=== PATIENT | male | born 2000 | race African-American/Black ===

== ENCOUNTER 2022-09-03 22:02 | Outpatient (CLI) | payer OTHER, SELFPAY | END 2022-09-03 22:03 | disposition home or self-care (01) | LOC: AMB 10-11 21:11 | PROVIDERS: Visit Provider Family Medicine | DX: S89.91XA Unspecified injury of right lower leg, initial encounter (principal); S09.93XA Unspecified injury of face, initial encounter; V18.0XXA Pedal cycle driver injured in noncollision transport accident in nontraffic accident, initial encounter; Y92.214 College as the place of occurrence of the external cause | CPT/HCPCS: A0425; A0427 ==

== ENCOUNTER 2022-09-03 22:23 | Emergency (ER) | payer OTHER, SELFPAY ==
[2022-09-03] VITALS (9 sets, daily range): BP systolic 126–140; BP diastolic 70–81; PULSE 65–77; RESP 20; TEMP 36.6; O2SAT 98–100; BMI 28.2
--- NOTE | 2022-09-03 22:49 | CRLHL7_ITS ---
For Patients: As a result of the Cures Act, medical imaging exams and procedure reports are released immediately into your electronic medical record. You may view this report before your referring provider. If you have questions, please contact your health care provider. INDICATION: Facial injury. TECHNIQUE: CT maxillofacial without contrast. COMPARISON: None. FINDINGS: Facial bones: No fractures or bone lesions. Specifically the nasal bones, temporomandibular joints, maxilla and mandible appear intact. Orbits and globes: Unremarkable. Globes are intact. No sign of intraorbital hemorrhage or emphysema. Sinuses: No acute or significant findings. Soft tissues: Left maxillary/periorbital hematoma IMPRESSION: Left maxillary/periorbital hematoma without acute fracture. Please note that all CT scans at this facility use dose modulation, iterative reconstruction, and/or weight-based dosing when appropriate to reduce radiation dose to as low as reasonably achievable. Dictated by Rishabh Griggs MD @ 09/03/2022 11:44:27 PM (Electronically Signed)
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
--- NOTE | 2022-09-03 22:49 | CRLHL7_ITS ---
For Patients: As a result of the Century Cures Act, medical imaging exams and procedure reports are released immediately into your electronic medical record. You may view this report before your referring provider. If you have questions, please contact your health care provider. Indication: Trauma. Technique: Right knee, 2 views. Comparison: None. Findings/Impression: Bones: Alignment is normal. No fractures or bone lesions. No sign of acute injury. Joint spaces: Small joint effusion. Soft tissues: Unremarkable. Dictated by Rishabh Griggs MD @ 09/03/2022 11:33:38 PM (Electronically Signed)
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
--- NOTE | 2022-09-03 23:54 | ED.NURSE ---
Antonia, [id number] at [facility] called. Patient states to tell the patient that he is OK. This is relayed to the Abd[facility].
[2022-09-04] MEDS: KETOROLAC 30 MG/ML inj IM (00:08)
== END 2022-09-04 00:47 | disposition home or self-care (01) ==
PROVIDERS: Emergency Provider Family Medicine
DX: S09.90XA Unspecified injury of head, initial encounter (principal); S01.81XA Laceration without foreign body of other part of head, initial encounter; V19.3XXA Pedal cyclist (driver) (passenger) injured in unspecified nontraffic accident, initial encounter; M25.561 Pain in right knee
CPT/HCPCS: 12011; 70450; 70486; 72125; 73560; 96372; 99284; 99291; G0390; J1885